=== PATIENT | male | born 1960 | race Caucasian/White ===

== ENCOUNTER 2021-03-10 21:18 | Emergency (ER) | payer OTHER ==
[~2021-03-10 21:18] MED LIST: ASPIRIN325 MG PO; LIPITOR 10MG TA10 MG PO; NORCO 5-325 TA1 EACH PO; POTASSIUM CHLO20 ME2 PO; PRINIVIL20 MG PO; TAMSULOSIN HCL0.4 MG PO; VITAMIN B-121000 MC1 PO
[2021-03-10] MEDS ORDERED: NEURONTIN100 MG PO (23:13)
[2021-03-10] MEDS ORDERED: ZOVIRAX800 MG PO (23:13)
== END 2021-03-10 23:33 | disposition home or self-care (01) ==
LOC: FER 21:18
DX: B02.9 Zoster without complications (principal); I10 Essential (primary) hypertension; E78.5 Hyperlipidemia, unspecified; Z79.899 Other long term (current) drug therapy; Z86.73 Personal history of transient ischemic attack (TIA), and cerebral infarction without residual deficits
CPT/HCPCS: 99282